=== PATIENT | female | born 1990 | race African-American/Black ===

== ENCOUNTER 2019-08-13 00:39 | Emergency (ER) | payer MEDICARE, MEDICAID ==
[~2019-08-13] VITALS: Ht 157.5 cm; Wt 61.2 kg
[2019-08-13] MEDS ORDERED: KLOR-CON 10 ER10 MEQ PO (00:53)
[2019-08-13 01:09] LABS: ABSOLUTE BASOPHILS 0.1 thou/uL (0.0-0.2); ABSOLUTE EOSINOPHILS 0.2 thou/uL (0.0-0.7); ABSOLUTE LYMPHOCYTES 3.4 thou/uL (0.8-5.3); ABSOLUTE MONOCYTES 1.1 thou/uL (0.0-1.2); ABSOLUTE NEUTROPHILS 7.9 thou/uL (1.6-8.1); EOSINOPHILS 1.4 %; HEMATOCRIT 38.2 % (37.0-47.0); HEMOGLOBIN 12.8 gm/dL (12.0-15.0); LYMPHOCYTES 26.7 %; MCHC 33.5 g/dL (28.0-37.0); MCV 86.5 fL (80.0-100.0); MONOCYTES 8.8 %; MPV 9.7 fl. (7.2-11.1); NUCLEATED RBCS 0 /100WBC; PLATELET COUNT* 281 thou/uL (150-400); POLYS 62.1 %; RBC 4.42 mil/uL (4.20-5.00); RDW-CV 15.5 % (10.5-14.5); WBC 12.8 thou/uL (4.0-11.0)
[2019-08-13 01:11] LABS: CREATININE 1.3 mg/dL (0.6-1.3); POTASSIUM 3.3 mmol/L (3.5-5.1)
[2019-08-13 01:15] LABS: ALBUMIN 4.2 g/dL (3.4-5.0); TOTAL BILIRUBIN 0.5 mg/dL (<0.1-1.0); TOTAL PROTEIN 7.6 g/dL (6.4-8.2)
[2019-08-13 04:11] VITALS: BP 106/55
== END 2019-08-13 04:22 | disposition short-term general hospital (02) ==
LOC: M.ERS 00:39
PROVIDERS: Personal Emergency Response Attendant
DX: N13.9 Obstructive and reflux uropathy, unspecified (principal); N23 Unspecified renal colic; R11.2 Nausea with vomiting, unspecified